=== PATIENT | female | born 1975 | race Caucasian/White ===

== ENCOUNTER 2020-01-08 10:17 | Emergency (ER) | payer BC ==
[~2020-01-08] VITALS: Ht 170.2 cm; Wt 102.5 kg
--- NOTE | 2020-01-08 10:30 | NUR ---
bib self c/o r knee pain and swelling x 5 days. will need medical clearance to go back [facility]. vs checked. awaiting md graham
[2020-01-08 10:52] LABS: BASOPHILS # (AUTO) 0.1 /CMM (0.0-0.2); BASOPHILS % (AUTO) 1.2 % (0.0-2.0); HEMATOCRIT 36 % (33-45); LYMPHOCYTES # (AUTO) 1.8 /CMM (0.8-4.8); LYMPHOCYTES % (AUTO) 23.4 % (20.0-44.0); MEAN CORPUSCULAR HGB CONC 33 g/dl (31.0-36.0); MEAN CORPUSCULAR VOLUME 87 fL (82-100); MONOCYTES # (AUTO) 0.7 /CMM (0.1-1.30); MONOCYTES % (AUTO) 8.7 % (2.0-12.0); NEUTROPHILS # (AUTO) 4.8 /CMM (1.8-8.9); NEUTROPHILS % (AUTO) 61.7 % (43.0-81.0); PLATELET COUNT (AUTO) 260 /CMM (150-450); RED BLOOD CELL COUNT(AUTO) 4.19 MIL/uL (4.0-5.2); WHITE BLOOD COUNT (AUTO) 7.7 K/uL (4.3-11.0)
[2020-01-08 11:18] LABS: CALCIUM, SERUM 9.1 mg/dL (8.5-10.1); CREATININE 0.8 mg/dL (0.6-1.3)
[2020-01-08 11:33] LABS: ALBUMIN 3.4 g/dL (3.4-5.0); BILIRUBIN,DIRECT 0.1 mg/dL (0.0-0.2); BILIRUBIN,TOTAL 0.2 mg/dL (0.2-1.0); TOTAL PROTEIN, SERUM 6.7 g/dL (6.4-8.2)
--- NOTE | 2020-01-08 11:58 | NUR ---
ultrasound currently being done by bedside.
--- NOTE | 2020-01-08 12:53 | NUR ---
Patient discharged to home in stable condition. Written and verbal after care instructions given. Patient verbalizes understanding of instruction. IV removed. Catheter intact and site benign. Pressure and 4x4 applied to site. No bleeding noted.
[2020-01-08 12:55] VITALS: BP 109/67
== END 2020-01-08 12:55 | disposition home or self-care (01) ==
LOC: ER 10:21
DX: I82.431 Acute embolism and thrombosis of right popliteal vein (principal); R60.0 Localized edema; F32.9 Major depressive disorder, single episode, unspecified; F43.10 Post-traumatic stress disorder, unspecified; Z98.890 Other specified postprocedural states
CPT/HCPCS: 36415; 71045-TC; 73564-TC; 80048-TC; 80076-TC; 85025-TC; 85652-TC; 93971-TC